=== PATIENT | male | born 1995 | race Caucasian/White ===

== ENCOUNTER 2022-11-26 16:33 | Emergency (ER) | payer OTHER | END 2022-11-26 18:43 | disposition home or self-care (01) | LOC: DL.ED 16:33 | DX: S52.134A Nondisplaced fracture of neck of right radius, initial encounter for closed fracture (principal); W18.30XA Fall on same level, unspecified, initial encounter | CPT/HCPCS: 73080-LT; 73080-RT; 99282; 99283 ==